=== PATIENT | male | born 1940 | race Caucasian/White ===

== ENCOUNTER 2018-11-13 12:58 | Outpatient (REF) | payer MEDICARE, BC, SELFPAY ==
[2018-11-13 19:50] LABS: HCT 41.7 % (40.0-50.0); HGB 13.2 g/dL (13.5-17.5); Mean Corp. HGB Concentration 31.7 g/dL (32.0-36.0); Mean Corpuscular Hemoglobin 29.3 pg (27.0-33.0); Mean Corpuscular Volume 92.5 fL (80-95); Mean Platelet Volume 11.4 fL (8.0-11.0); Platelet Count 176 x1000/uL (130-400); RBC 4.51 m/cumm (4.50-6.00); RBC Distribution Width 14.7 % (11.8-14.1)
[2018-11-13 20:36] LABS: Anion Gap 10.2 mmol/L (3-11); BUN 19 mg/dL (7-18); CO2 26.8 mmol/L (21.0-32.0); CREATININE 1.23 mg/dL (0.70-1.30); Calcium 9.7 mg/dL (8.5-10.1); Chloride 105 mmol/L (98-107); Estimated GFR 56.76 (mL/min/1.73m2); Glucose 125 mg/dL (70-100); Potassium 4.3 mmol/L (3.5-5.1); Sodium 142 mmol/L (136-145); Vitamin B12 280 pg/mL (193-986)
[2018-11-15 14:14] LABS: Total Protein 6.6 g/dl (6.3-8.2)
== END 2018-11-13 13:18 ==
LOC: NCHCN 12:58
PROVIDERS: PCP Internal Medicine; Visit Provider Internal Medicine
DX: R47.1 Dysarthria and anarthria (principal); E11.40 Type 2 diabetes mellitus with diabetic neuropathy, unspecified
CPT/HCPCS: 80048; 85027; 82607; 84165; 84443

== ENCOUNTER → 2019-01-01 08:21 | Outpatient (BNVA) | payer MEDICARE, BC, SELFPAY | PROVIDERS: PCP Internal Medicine; Referring Provider Internal Medicine; Visit Provider Urology | DX: R33.9 Retention of urine, unspecified (principal) ==

== ENCOUNTER → 2019-01-04 08:58 | Outpatient (BNVA) | payer MEDICARE, BC, SELFPAY | PROVIDERS: PCP Internal Medicine; Referring Provider Internal Medicine; Visit Provider Urology | DX: R35.0 Frequency of micturition (principal); Z87.898 Personal history of other specified conditions | CPT/HCPCS: 51798; 81003; 99212; 99213 ==

== ENCOUNTER → 2019-02-07 11:00 | Outpatient (BNVA) | payer MEDICARE, BC, SELFPAY | PROVIDERS: PCP Internal Medicine; Referring Provider Internal Medicine; Visit Provider Nurse Practitioner Gerontology | DX: N32.81 Overactive bladder (principal); E11.42 Type 2 diabetes mellitus with diabetic polyneuropathy; I10 Essential (primary) hypertension | CPT/HCPCS: 99214 ==

== ENCOUNTER 2019-08-30 09:38 | Outpatient (REF) | payer MEDICARE, BC, SELFPAY ==
[2019-08-30 19:08] LABS: HCT 38.5 % (40.0-50.0); HGB 11.9 g/dL (13.5-17.5); Mean Corp. HGB Concentration 30.9 g/dL (32.0-36.0); Mean Corpuscular Hemoglobin 27.6 pg (27.0-33.0); Mean Corpuscular Volume 89.3 fL (80-95); Mean Platelet Volume 10.8 fL (8.0-11.0); Platelet Count 249 x1000/uL (130-400); RBC 4.31 m/cumm (4.50-6.00); RBC Distribution Width 14.5 % (11.8-14.1); White Blood Cell Count 5.37 k/cumm (4.4-10.8)
[2019-08-30 19:26] LABS: BUN 23 mg/dL (7-18); CREATININE 1.18 mg/dL (0.70-1.30); Calcium 9.2 mg/dL (8.5-10.1); Chloride 105 mmol/L (98-107); Glucose 167 mg/dL (74-106); Potassium 4.1 mmol/L (3.5-5.1); Sodium 141 mmol/L (136-145)
== END 2019-08-30 09:58 ==
LOC: NCHCN 09:38
PROVIDERS: PCP Internal Medicine; Visit Provider Nurse Practitioner Family
DX: Z01.818 Encounter for other preprocedural examination (principal)
CPT/HCPCS: 80048; 85027

== ENCOUNTER → 2019-11-06 08:04 | Outpatient (BNVA) | payer MEDICARE, BC, SELFPAY | PROVIDERS: PCP Internal Medicine; Referring Provider Internal Medicine; Visit Provider Urology | DX: N32.81 Overactive bladder (principal); Z87.898 Personal history of other specified conditions; E11.9 Type 2 diabetes mellitus without complications; I10 Essential (primary) hypertension; Z79.4 Long term (current) use of insulin | CPT/HCPCS: 81003; 99213 ==

== ENCOUNTER → 2019-12-28 09:33 | Outpatient (BNVA) | payer MEDICARE, BC, SELFPAY | PROVIDERS: PCP Internal Medicine; Referring Provider Internal Medicine; Visit Provider Urology | DX: N32.81 Overactive bladder (principal); E11.42 Type 2 diabetes mellitus with diabetic polyneuropathy; I10 Essential (primary) hypertension; Z79.4 Long term (current) use of insulin | CPT/HCPCS: 99213 ==

== ENCOUNTER → 2020-01-28 13:08 | Outpatient (BNVA) | payer MEDICARE, BC, SELFPAY | PROVIDERS: PCP Internal Medicine; Referring Provider Internal Medicine; Visit Provider Urology | DX: N32.81 Overactive bladder (principal); Z87.898 Personal history of other specified conditions; E11.42 Type 2 diabetes mellitus with diabetic polyneuropathy; I10 Essential (primary) hypertension | CPT/HCPCS: 99213 ==

== ENCOUNTER → 2020-02-11 13:59 | Outpatient (BNVA) | payer MEDICARE, BC, SELFPAY | PROVIDERS: PCP Internal Medicine; Referring Provider Internal Medicine; Visit Provider Nurse Practitioner Adult Health | DX: G56.03 Carpal tunnel syndrome, bilateral upper limbs (principal); G56.23 Lesion of ulnar nerve, bilateral upper limbs; E11.42 Type 2 diabetes mellitus with diabetic polyneuropathy; I10 Essential (primary) hypertension | CPT/HCPCS: 95886; 95911; 99203; 99214 ==

== ENCOUNTER → 2020-04-21 15:06 | Outpatient (BNVA) | payer MEDICARE, BC, SELFPAY | PROVIDERS: PCP Internal Medicine; Referring Provider Internal Medicine; Visit Provider Nurse Practitioner Gerontology | DX: N32.81 Overactive bladder (principal); M25.552 Pain in left hip; R33.8 Other retention of urine | CPT/HCPCS: 99213 ==

== ENCOUNTER 2020-07-30 16:44 | Outpatient (REF) | payer MEDICARE, BC, SELFPAY ==
[2020-07-30 20:38] LABS: Anion Gap 10.1 mmol/L (3-11); BUN 32 mg/dL (7-18); CO2 24.9 mmol/L (21.0-32.0); CREATININE 1.4 mg/dL (0.70-1.30); Calcium 9.2 mg/dL (8.5-10.1); Chloride 109 mmol/L (98-107); Estimated GFR 48.64 (mL/min/1.73m2); Glucose 148 mg/dL (74-106); Potassium 4.9 mmol/L (3.5-5.1); Sodium 144 mmol/L (136-145)
[2020-07-30 20:49] LABS: HCT 35.6 % (40.0-50.0); HGB 10.8 g/dL (13.5-17.5); MCH 25.4 pg (27.0-33.0); MCHC 30.3 % (32.0-36.0); MCV 83.8 fL (80-95); MPV 11.6 fL (8.0-11.0); Platelet Count 202 10^3/uL (130-400); RBC 4.25 10^6/uL (4.36-5.78); RDW 16.6 % (11.8-14.1); RDW-SD 50.8 fL; WBC 4.23 10^3/uL (4.4-10.8)
== END 2020-07-30 16:45 | disposition home or self-care (01) ==
LOC: NCHCN 16:44
PROVIDERS: PCP Internal Medicine; Visit Provider Internal Medicine
DX: G45.9 Transient cerebral ischemic attack, unspecified (principal); M48.02 Spinal stenosis, cervical region; I10 Essential (primary) hypertension
CPT/HCPCS: 80048; 85027

== ENCOUNTER → 2020-08-14 09:57 | Outpatient (BNVA) | payer MEDICARE, BC, SELFPAY | PROVIDERS: PCP Internal Medicine; Referring Provider Internal Medicine; Visit Provider Nurse Practitioner Gerontology | DX: N32.81 Overactive bladder (principal); Z87.898 Personal history of other specified conditions | CPT/HCPCS: 81003; 99213 ==

== ENCOUNTER 2020-09-03 15:49 | Outpatient (REF) | payer MEDICARE, BC, SELFPAY ==
[2020-09-03 20:51] LABS: HCT 36.5 % (40.0-50.0); HGB 10.8 g/dL (13.5-17.5); MCH 25.6 pg (27.0-33.0); MCHC 29.6 % (32.0-36.0); MCV 86.5 fL (80-95); MPV 11.5 fL (8.0-11.0); Platelet Count 189 10^3/uL (130-400); RBC 4.22 10^6/uL (4.36-5.78); RDW 16.1 % (11.8-14.1); RDW-SD 51.6 fL; WBC 3.58 10^3/uL (4.4-10.8)
[2020-09-03 21:09] LABS: Anion Gap 10.6 mmol/L (3-11); BUN 26 mg/dL (7-18); CO2 26.4 mmol/L (21.0-32.0); CREATININE 1.2 mg/dL (0.70-1.30); Chloride 107 mmol/L (98-107); Estimated GFR 58.11 (mL/min/1.73m2); Glucose 139 mg/dL (74-106); Potassium 4.6 mmol/L (3.5-5.1); Sodium 144 mmol/L (136-145)
== END 2020-09-03 15:50 | disposition home or self-care (01) ==
LOC: NCHCN 15:49
PROVIDERS: PCP Internal Medicine; Visit Provider Internal Medicine
DX: Z01.818 Encounter for other preprocedural examination (principal); G89.29 Other chronic pain
CPT/HCPCS: 80048; 85027

== ENCOUNTER → 2021-01-13 10:13 | Outpatient (BNVA) | payer MEDICARE, BC, SELFPAY | PROVIDERS: PCP Internal Medicine; Referring Provider Internal Medicine; Visit Provider Urology | DX: R33.8 Other retention of urine (principal); N32.81 Overactive bladder; R39.89 Other symptoms and signs involving the genitourinary system; E11.9 Type 2 diabetes mellitus without complications | CPT/HCPCS: 99213 ==

== ENCOUNTER → 2021-02-05 10:03 | Outpatient (BNVA) | payer MEDICARE, BC, SELFPAY | PROVIDERS: PCP Internal Medicine; Referring Provider Internal Medicine; Visit Provider Nurse Practitioner Gerontology | DX: N32.81 Overactive bladder (principal); R33.8 Other retention of urine; Z87.898 Personal history of other specified conditions; Z79.899 Other long term (current) drug therapy | CPT/HCPCS: 81003; 99214 ==

== ENCOUNTER → 2021-04-20 09:44 | Outpatient (BNVA) | payer MEDICARE, BC, SELFPAY | PROVIDERS: PCP Internal Medicine; Referring Provider Internal Medicine; Visit Provider Nurse Practitioner Gerontology | DX: R33.8 Other retention of urine (principal); N32.81 Overactive bladder; Z87.898 Personal history of other specified conditions | CPT/HCPCS: 99214 ==

== ENCOUNTER 2021-06-26 18:12 | Outpatient (REF) | payer MEDICARE, BC, SELFPAY ==
[2021-06-26 19:17] LABS: HCT 40.6 % (40.0-50.0); HGB 12.4 g/dL (13.5-17.5); MCH 27.9 pg (27.0-33.0); MCHC 30.5 % (32.0-36.0); MCV 91.4 fL (80-95); MPV 10.9 fL (8.0-11.0); Platelet Count 164 10^3/uL (130-400); RBC 4.44 10^6/uL (4.36-5.78); RDW 14.7 % (11.8-14.1); RDW-SD 49.3 fL; WBC 4.37 10^3/uL (4.4-10.8)
[2021-06-26 19:29] LABS: Anion Gap 7.2 mmol/L (3-11); BUN 24 mg/dL (7-18); CO2 29.8 mmol/L (21.0-32.0); CREATININE 1.2 mg/dL (0.70-1.30); Calcium 9.5 mg/dL (8.5-10.1); Chloride 106 mmol/L (98-107); Estimated GFR 57.96 (mL/min/1.73m2); Glucose 101 mg/dL (74-106); Potassium 4.5 mmol/L (3.5-5.1); Sodium 143 mmol/L (136-145)
== END 2021-06-26 18:13 | disposition home or self-care (01) ==
LOC: NCHCN 18:12
PROVIDERS: PCP Internal Medicine; Visit Provider Nurse Practitioner Family
DX: E11.40 Type 2 diabetes mellitus with diabetic neuropathy, unspecified (principal); Z01.818 Encounter for other preprocedural examination
CPT/HCPCS: 80048; 85027

== ENCOUNTER → 2021-07-30 12:27 | Outpatient (BNVA) | payer MEDICARE, BC, SELFPAY | PROVIDERS: PCP Internal Medicine; Referring Provider Internal Medicine; Visit Provider Nurse Practitioner Gerontology | DX: N32.81 Overactive bladder (principal); R33.8 Other retention of urine; Z87.898 Personal history of other specified conditions | CPT/HCPCS: 51798; 99214 ==

== ENCOUNTER 2022-05-21 18:20 | Outpatient (REF) | payer MEDICARE, BC, SELFPAY ==
--- OUTSIDE RECORDS SUMMARY | 2022-05-21 18:36 | XMS_ITS | Continuity of Care Document ---
Author Name Unknown Organization [facility] Ambulatory Clinics Address [address] [place] [address] Care Team Providers Care Audio Visual Design Engineer Name Role Phone Rogelio Louise DO Primary Care Physician Encounter [facility] NBR [id number] Date(s): 03/02/22 - 03/02/22 [facility] Amb[facility] [address] [place] [phone] Encounter Diagnosis Lumbar radiculopathy(Discharge Diagnosis) - 03/02/22 Sacroiliac joint dysfunction(Discharge Diagnosis) - 03/02/22 Osteoarthritis of knee(Discharge Diagnosis) - 03/02/22 Myofascial pain(Discharge Diagnosis) - 03/02/22 Spinal enthesopathy, lumbar region(Discharge Diagnosis) - 03/02/22 Discharge Disposition: Home or Self Care Attending Physician: Bandar Arnold DO Allergies, Adverse Reactions, Alerts Substance Reaction Severity Status ibuprofen Unknown Unknown Active naproxen Unknown Unknown Active oxybutynin Unknown Unknown Active diclofenac Unknown Unknown Active atorvastatin Unknown Unknown Active Capoten Unknown Unknown Active Assessment and Plan Future Appointments Medications allopurinol 300 mg oral tablet See Instructions, 0 Refill(s) Start Date: 12/24/21 Status: Ordered aspirin 81 mg oral capsule See Instructions, 0 Refill(s) Start Date: 12/24/21 Status: Ordered doxazosin 4 mg oral tablet See Instructions, 0 Refill(s) Start Date: 12/24/21 Status: Ordered ferrous sulfate 325 mg (65 mg elemental iron) oral delayed release tablet See Instructions, 0 Refill(s) Start Date: 12/24/21 Status: Ordered finasteride 5 mg oral tablet See Instructions, 0 Refill(s) Start Date: 12/24/21 Status: Ordered Flonase Allergy Relief 50 mcg/inh nasal spray See Instructions, 0 Refill(s) Start Date: 12/24/21 Status: Ordered fluorouracil 5% topical cream BID, 1 Unknown, 0 Refill(s) Start Date: 12/24/21 Status: Ordered gabapentin 100 mg oral capsule See Instructions, 0 Refill(s) Start Date: 12/24/21 Status: Ordered Levemir FlexTouch 100 units/mL subcutaneous solution See Instructions, 0 Refill(s) Start Date: 12/24/21 Status: Ordered losartan 100 mg oral tablet See Instructions, 0 Refill(s) Start Date: 12/24/21 Status: Ordered losartan 25 mg oral tablet 25 mg = 1 tab, Oral, Daily, 1 Unknown, 0 Refill(s) Start Date: 12/24/21 Status: Ordered lysine 1000 mg oral tablet 0 Refill(s) Start Date: 12/24/21 Status: Ordered metFORMIN 500 mg oral tablet See Instructions, 0 Refill(s) Start Date: 12/24/21 Status: Ordered metFORMIN 850 mg oral tablet See Instructions, 0 Refill(s) Start Date: 12/24/21 Status: Ordered mometasone-formoterol 50 mcg-5 mcg/ inh inhalation aerosol 0 Refill(s) Start Date: 12/24/21 Status: Ordered montelukast 10 mg oral tablet 10 mg = 1 tab, Oral, Daily, 1 Unknown, 0 Refill(s) Start Date: 12/24/21 Status: Ordered multivitamin adult, oral tablet See Instructions, 0 Refill(s) Start Date: 12/24/21 Status: Ordered Myrbetriq 50 mg oral tablet, extended release See Instructions, 0 Refill(s) Start Date: 12/24/21 Status: Ordered Nasonex 50 mcg/inh nasal spray See Instructions, 0 Refill(s) Start Date: 12/24/21 Status: Ordered oxyCODONE-acetaminophen 5 mg-325 mg oral tablet See Instructions, QID, 0 Refill(s) Start Date: 12/24/21 Status: Ordered simvastatin 80 mg oral tablet See Instructions, 0 Refill(s) Start Date: 12/24/21 Status: Ordered timolol hemihydrate 0.5% ophthalmic solution See Instructions, 0 Refill(s) Start Date: 12/24/21 Status: Ordered Tylenol 8 HR Arthritis Pain 0 Refill(s) Start Date: 12/24/21 Status: Ordered Tylenol Extra Strength 500 mg oral tablet 0 Refill(s) Start Date: 12/24/21 Status: Ordered ZyrTEC 10 mg oral tablet See Instructions, 0 Refill(s) Start Date: 12/24/21 Status: Ordered Problem List Condition Confirmation Course Effective Dates Status H ealth Status Informant Actinic keratosis Confirmed Active Actinic keratosis Confirmed Active Bilateral sacroiliitis Confirmed Active Bronchiectasis Confirmed Active Chronic obstructive lung disease Confirmed Active Chronic pain Confirmed Active Chronic pansinusitis Confirmed Active Chronic rhinitis Confirmed Active Hypertrophy of nasal turbinates Confirmed Active Interstitial lung disease Confirmed Active Lumbar spondylosis Confirmed Active 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 Sex Physician Outpatient Note * Bandar Arnold DO: PERFORM Event Display: Office Clinic Note Physician Authored Date: [id number] JAJA SORIANO :1940 Age:81 years Sex:Male Visit Date:03/02/2022 Primary Care Physician: Rogelio Louise DO History of Present Illness Patient here for follow-up after caudal epidural and bilateral sacroiliac injection x1. ??Patient to have 80% relief of pain. ??Patient continues complain of lower??right sided back pain??but denies any radiation of pain.?? Today patient also complains of severe left knee pain would like to proceedwith knee injection. ??He denies any adverse reactions to injection. ??Patient also brought an MRI??that was ordered by PCP recently Review of Systems Patient denies any shortness of breath, chest pain, adverse reaction to procedures, new numbness, weakness, bladder dysfunction, bowel dysfunction, falls, gait/balance impairment Physical Exam Orientaton: AOx3, NAD Mood: pleasant ROM: pain with Palpation: tenderness to??palpation, trigger points noted??lumbar paraspinals Respiratory: non labor, non distress Provocative exam: SLR??positive gait: Antalgic??but steady ?? Review MRI lumbar spine ?? Procedure Diagnosis: Knee osteoarthritis Procedure: Left??knee aspiration with steroid injection under ultrasound guidance ?? After risks benefits were described to patient patient agreed by verbal written consent.?? Patient was placed??in supine position??with knee??flexed at 40% with a pillow. ??After sterilizing the kneewith alcohol solution??and visualizing knee joint ultrasound??a 22-gauge needle was gently placed??into the knee joint.?? 10 mL of clear knee fluid was aspirated,??there is no signs of infection.?? Thin steroid solution consisting of 40 mg of Depo-Medrol??was injected??into the knee joint. ??This was visualized ultrasound-guided imaging??to ensure proper knee replacement??and to minimize injury.?? Needle was withdrawal. ??There is no sign of intravascular injection and patient remained stable throughout. ??Patient was discharged home with instructions to call if any problems arise and follow-up in office within 2 weeks ? Diagnosis:??Myofascial pain, lumbar spinal??enthesopathy Procedure:??Right??lumbar trigger point injections ?? After risk and benefits were explained to the patient in detailed, the patient agreed to proceedwith trigger point injections. After?? identifying trigger points by palpation and sterilizing the skin with an alcohol solution, a 22 gauge needle was placed into each trigger points. After negativeaspriation a lidocaine solution was injected into each trigger point. Then each trigger point was peppered. The needle was withdrawn and there were no complications. A total of 5 TPI were performed to the lumbar paraspinals Assessment/Plan Lumbar radiculopathy??M54.16 Patient received 80% relief from caudal epidural bilateral sacroiliac joint injection x1. ??Patientresidual pain??appears secondary to unresolved lumbar radiculopathy myofascial pain. ??There may becomponent lumbar spondylosis at the sacral region Patient's knee pain secondary to DJD Perform trigger point injections today especially around his lumbar scar regions Performed left knee aspiration and steroid injections ultrasound-guided imaging Patient would be a good candidate for hyaluronic acid derivatives in the future Schedule patient for right L5 and S1 transforaminal epidural Patient may benefit from sacral medial branch blocks versus repeat??sacroiliac joint injection if clinically Due to the fact that patient has 80% relief with caudal epidural??failed??conservative treatment such as medications and physical therapy, has imaging suggesting a disc injury, positive signs on provocative exam such as straight leg test, numbness and/or weakness. It is my??clinical judgement that patient would benefit from??right L5 and S1??transforaminal epidural??steroid??injections under fluoroscopy.? will send to physical therapy if pain relief improves to 90% for gait/balance improvement and injury prevention ?? Follow-up 2 weeks after injection. ??Explained to patient that??he may be following up with new provider he is agreement with it. 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 Nasal discharge Osteoarthritis of left knee joint Polyp of nasal cavity and/or nasal sinus Posterior rhinorrhea Purulent nasal discharge Recurrent acute sinusitis Solitary sacroiliitis Squamous cell carcinoma Thoracic spondylosis with myelopathy Type 2 diabetes mellitus without complication Historical No qualifying data Medications allopurinol 300 mg oral tablet, See Instructions aspirin 81 mg oral capsule, See Instructions doxazosin 4 mg oral tablet, See Instructions ferrous sulfate 325 mg (65 mg elemental iron) oral delayed release tablet, See Instructions finasteride 5 mg oral tablet, See Instructions Flonase Allergy Relief 50 mcg/inh nasal spray, See Instructions fluorouracil 5% topical cream, BID gabapentin 100 mg oral capsule, See Instructions Levemir FlexTouch 100 units/mL subcutaneous solution, See Instructions losartan 100 mg oral tablet, See Instructions losartan 25 mg oral tablet, 25 mg= 1 tab, Oral, Daily lysine 1000 mg oral tablet metFORMIN 500 mg oral tablet, See Instructions metFORMIN 850 mg oral tablet, See Instructions mometasone-formoterol 50 mcg-5 mcg/ inh inhalation aerosol montelukast 10 mg oral tablet, 10 mg= 1 tab, Oral, Daily multivitamin adult, oral tablet, See Instructions Myrbetriq 50 mg oral tablet, extended release, See Instructions Nasonex 50 mcg/inh nasal spray, See Instructions oxyCODONE-acetaminophen 5 mg-325 mg oral tablet, See Instructions simvastatin 80 mg oral tablet, See Instructions timolol hemihydrate 0.5% ophthalmic solution, See Instructions Tylenol 8 HR Arthritis Pain Tylenol Extra Strength 500 mg oral tablet ZyrTEC 10 mg oral tablet, See Instructions Allergies Capoten??(Unknown) atorvastatin??(Unknown) diclofenac??(Unknown) ibuprofen??(Unknown) naproxen??(Unknown) oxybutynin??(Unknown) Social History Electronic Cigarette/Vaping Electronic Cigarette Use: Unknown/not obtained. Tobacco Tobacco use status unknown Tobacco Use:. Electronically Signed on 03/02/22 11:12 AM Bandar Arnold DO Patient Care team information Personnel Name: Rogelio Louise DO Address: Address: [address] [place] [id number] [place]
--- OUTSIDE RECORDS SUMMARY | 2022-05-21 18:36 | XMS_ITS | Continuity of Care Document ---
Author Name Unknown Organization [facility] Address [address] [place] [address] Care Team Providers Care Adjudication Specialist Name Role Phone Primeau Rosas MATIAS Primary Care Physician Encounter [facility] Date(s): 03/29/22 - 03/29/22 [facility] [address] [place] [address] Encounter Diagnosis Cervical myelopathy(Discharge Diagnosis) - 03/29/22 Arthritis of both shoulder regions(Discharge Diagnosis) - 03/29/22 Discharge Disposition: Home or Self Care Attending Physician: Osbaldo Rodriguez MD Admitting Physician: Osbaldo Rodriguez MD Referring Physician: Osbaldo Rodriguez MD Allergies, Adverse Reactions, Alerts No Known Medication Allergies Substance Reaction Severity Status diclofenac Unknown Active atorvastatin Unknown Active Assessment and Plan Future Appointments Medications acetaminophen 325 mg oral tablet 650 mg = 2 tab, Oral, every 6 hr, PRN pain, 0 Refill(s) Start Date: 10/13/21 Status: Ordered allopurinol 300 mg oral tablet 300 mg = 1 tab, Oral, Daily, # 30 tab, 0 Refill(s) Start Date: 10/12/21 Status: Ordered aspirin 81 mg oral tablet, chewable 81 mg = 1 tab, Oral, Daily, 0 Refill(s) Start Date: 10/13/21 Status: Ordered celecoxib 200 mg oral capsule 200 mg = 1 cap, Oral, Daily, # 90 cap, 0 Refill(s) Start Date: 10/12/21 Status: Ordered doxazosin 2 mg oral tablet 2 mg = 1 tab, Oral, Daily, # 90 tab, 0 Refill(s) Start Date: 10/12/21 Status: Ordered finasteride 5 mg oral tablet 5 mg = 1 tab, Oral, Daily, # 90 tab, 0 Refill(s) Start Date: 10/12/21 Status: Ordered Flonase 50 mcg/inh nasal spray 2 sprays, Nasal, every morning, PRN allergy symptoms, 0 Refill(s) Start Date: 10/12/21 Status: Ordered gabapentin 100 mg oral capsule 200 mg = 2 cap, Oral, Daily, 0 Refill(s) Start Date: 10/13/21 Status: Ordered insulin detemir 100 units/mL subcutaneous solution 40 units =, Subcutaneous, Daily, pt has, # 10 mL, 0 Refill(s) Start Date: 10/13/21 Status: Ordered losartan 50 mg oral tablet 50 mg = 1 tab, Oral, Daily, # 90 tab, 0 Refill(s) Start Date: 10/12/21 Status: Ordered magnesium oxide 400 mg (241.3 mg elemental magnesium) oral tablet 400 mg = 1 tab, Oral, Daily, 0 Refill(s) Start Date: 10/13/21 Status: Ordered metFORMIN 850 mg oral tablet 850 mg = 1 tab, Oral, BID, # 180 tab, 0 Refill(s) Start Date: 10/12/21 Status: Ordered montelukast 10 mg oral tablet 10 mg = 1 tab, Oral, Daily, 0 Refill(s) Start Date: 10/12/21 Status: Ordered Myrbetriq 50 mg oral tablet, extended release 50 mg = 1 tab, Oral, Daily, do not crush or chew, # 30 tab, 0 Refill(s) Start Date: 10/12/21 Status: Ordered oxyCODONE 5 mg oral tablet 0 Refill(s) Start Date: 10/13/21 Status: Ordered timolol maleate 0.5% ophthalmic solution 1 drops, Eye-Both, Daily, 0 Refill(s) Start Date: 10/12/21 Status: Ordered Problem List Condition Confirmation Course Effective Dates Status Health St [facility] Informant Arthritis of both shoulder regions Confirmed Active Cervical myelopathy Confirmed Active Diabetic peripheral neuropathy Confirmed Active Hypertension Confirmed Active Primary osteoarthritis, left shoulder Confirmed Active Type 2 diabetes mellitus Confirmed Active Social History Social History Type Response Tobacco Former tobacco user Tobacco Use:. quit 1972 per day. Sex Male Patient Care team information Personnel Name: Ben Rosas MATIAS MD Address: Address: [address]
--- OUTSIDE RECORDS SUMMARY | 2022-05-21 18:36 | XMS_ITS ---
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 Name Role Phone Noe Mckeon Unavailable [phone] PROBLEMS Type Condition ICD9-CM Code ICC91-JR Code Onset Dates Condition Status SNOMED Code Problem Encounter for postoperative wound check V58.49 Active 028494642 Problem Postop check V67.00 Active 636247524 Problem Spondylolisthesis of lumbar region M43.16 Active 466194884 Problem Lumbar spondylosis M47.816 Active 82072 0009 Problem Acquired spondylolisthesis 738.4 Active 595709006 ALLERGIES No Known Allergies ENCOUNTERS Encounter Location Date Diagnosis [facility] [address] [place] [address] [place] [address] May, [facility] [address] [place] [address] [place] [phone] 14 Apr, 2022 Postop check V67.00 ; Encounter for postoperative wound check V58.49 ; Lumbar spondylosis M47.816 and Spondylolisthesis of lumbar region M43.16 [facility] [address] [place] [address] [place] [address] Mar, [facility] [address] [place] [address] [place] [phone] Mar, Lumbar spondylosis M47.816 [facility] [address] [place] [address] [place], [place] Mar, Postop check V67.00 ; Lumbar spondylosis M47.816 and Spondylolisthesis of lumbar region M43.16 [facility] [address] [place] [address] [place], [place] Nov, [facility] [address] [place] [address] [place], [place] Nov, [facility] [address] [place] [address] [place], [place] July, Postop check V67.00 ; Lumbar spondylosis M47.816 and Spondylolisthesis of lumbar region M43.16 [facility] [address] [place] [address] [place], [place] July, [facility] [address] [place] [address] [place] [address] May, [facility] [address] [place] [address] [place] [address] May, Postop check V67.00 ; Lumbar spondylosis M47.816 and Spondylolisthesis of lumbar region M43.16 [facility] [address] [place] [address] [place], [place] 08 Nov, 2015 Postop check V67.00 ; Lumbar spondylosis M47.816 ; Encounter for postoperative wound check V58.49 and Spondylolisthesis of lumbar region M43.16 [facility] [address] [place] [address] [place], [place] Oct, [facility] [address] [place] [address] [place] Oct, [facility] [address] [place] [address] [place], [place] Oct, [facility] [address] [place] [address] [place] Oct, [facility] [address] [place] [address] [place] Oct, Lumbar spondylosis M47.816 ; Encounter for postoperative wound check V58.49 and Spondylolisthesis of lumbar region M43.16 [facility] [address] [place] [address] [place] [address] 15 Aug, 2015 Postop check V67.00 ; Lumbar spondylosis M47.816 ; Encounter for postoperative wound check V58.49 ; Spondylolisthesis of lumbar region M43.16 and Acquired spondylolisthesis 738.4 [facility] [address] [place] [address] [place] [address] July, [facility] [address] [place] [address] [place] July, [facility] [address] [place] [address] [place], [place] July, [facility] [address] [place] [address] [place] Jun, [facility] [address] [place] [address] [place] Jun, [facility] [address] [place] [address] [place] Jun, [facility] [address] [place] [address] [place] Jun, [facility] [address] [place] [address] [place] [address] Jun, [facility] [address] [place] [address] [place], [place] Jun, [facility] [address] [place] [address] [place] [address] May, [facility] [address] [place] [address] [place] Apr, [facility] [address] [place] [address] [place], [place] Apr, [facility] [address] [place] [address] [place] Feb, [facility] [address] [place] [address] [place] Jan, Lumbar spondylosis M47.816 ; Spondylolisthesis of lumbar region M43.16 and Acquired spondylolisthesis 738.4 [facility] [address] [place] [address] [place] [address] Aug, [facility] [address] [place] [address] [place] [address] July, [facility] [address] [facility] [address] [place] [address] [place] [address] July, Lumbosacral spondylosis without myelopathy 721.3 and Acquired spondylolisthesis 738.4 IMMUNIZATIONS No Known Immunizations SOCIAL HISTORY Never Assessed REASON FOR REFERRAL FUNCTIONAL STATUS PLAN OF CARE Activity Details VITAL SIGNS Height 5 ft 9 in in 2022-03-17 Weight 170 lbs 2022-03-17 BMI 25.10 kg/m2 2022-03-17 MEDICATIONS Medication Instructions Dosage Frequency Start Date End Date Du ration Status Aspirin Active Insulin Aspart A ctive Klor-Con Active Doxazosin Mesylate Active Glimepiride Acti ve Allopurinol Acti ve aMILoride-hydroCHLO ROthiazide Active Metformin Active Simvastatin Acti ve Timolol Hemihydrate Active Diovan Active PROCEDURES No Known procedures RESULTS Name Result Date Reference Range COMPLETE BLOOD COUNT W PLT - CBC Hematocrit 35.6 42.0-51.0 Hemoglobin 11.3 14.0-17.0 MCH 30.0 27.0-34.0 MCHC 31.7 31.0-36.0 MCV 94.4 80.0-98.0 Platelet 153 150-400 RDW-CV 13.7 11.5-14.5 Red Blood Count 3.77 4.20-5.80 White Blood Coun 6.57 4.0-11.0 BASIC METABOLIC PANEL - BMP 2022-04-07 Bicarbonate 28 21-30 BUN 26 6-20 Calcium 8.6 8.4-10.2 Chloride 104 100-112 Creatinine 1.1 0.0-1.3 Glucose 211 70-105 Potassium 4.7 3.5-5.3 Sodium 140 135-145 MAGNESIUM - MG 2022-04-07 Magnesium 1.2 1.6-2.6 CT LUMBAR SPINE WITHOUT CONTR 2016-06-24 LUMBAR SPINE 2-3 VIEWS 2016-05-05 FLUORO C ARM OR 2015-10-28 MRI SPINE-LUMBAR 2015-10-07 CHEST PA and LATERAL 2015-07-14 LUMBAR SPINE 2-3 VIEWS 2015-07-13 FLUORO C ARM 3D OR 2015-07-10 REASON FOR VISIT Call Back , 2 week post op s/p [id number] PSF w/ L1-L2 SPO (04/06/2022), Diagnostics, s/p Exploration of lumbar fusion for right L5-S1 synovial cyst resection and laminoforaminotomy (10/28/2015), Low back pain and right leg 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, 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, 9 month follow up s/p Exploration of prior instrumentated lumbar fusion for right L5-S1 synovial cyst resection and laminoforaminotomy (10/28/2015), Diagnostic Results, CT results/ cancelled appt , Pt needs surgery, 10 month post op s/p Exploration of prior instrumented lumbar fusion for right L5-S1 synovial cyst resection and laminoforaminotomy (10/28/2015)., 2week post op s/p Exploration of prior instrumented lumbar fusion for right L5-S1 synovial cyst resection and laminoforaminotomy (10/28/2015)., surgery, surgery, Pt will be needing surgery, 3 month post op s/p Rev lami L1-L5; L1-L5 PSF; pedicle fixation L1-L5 (07/10/2015), 5.5 week post op s/p Rev lamiL1-L5; L1-L5 PSF; pedicle fixation L1-L5 (07/10/2015), Needs call back from office, back brace, needs clearance , Surgical pt 07/10/2015, surgery, ready to book surgery, Cancel surgery, Questions, Low back pain and bilateral leg pain (R>L), FYI only, Low back pain and bilateral leg pain (R>L) Insurance Providers Health Insurance Type Health Plan Insurance Address Health Plan Insurance Phone Health Plan Insurance Name Health Plan Coverage Dates Member ID Patient Relationship to Subscriber Patient Address Patient Phone Patient Name Patient Date of Subscriber ID Subscriber Name Subscriber Date of Group No MEDICARE [address] [facility] [address] MEDICARE self [place] grant [id number] [facility] Medex self [place] grant [id number]
--- OUTSIDE RECORDS SUMMARY | 2022-05-21 18:36 | XMS_ITS | Continuity of Care Document ---
Author Name Unknown Organization [facility] Address [address] [place] [address] Care Team Providers Care Sign Manufacturer Name Role Phone Rosas Fowler Primary Care Physician Encounter [facility] Date(s): 02/18/22 - 02/18/22 [facility] [address] [place] [address] Discharge Disposition: Home or Self Care Attending Physician: Rosas Fowler MD Admitting Physician: Rosas Fowler MD Referring Physician: Rosas Fowler MD Allergies, Adverse Reactions, Alerts No Known [...] peripheral neuropathy Confirmed Active Hypertension Confirmed Active Type 2 diabetes mellitus Confirmed Active Social History Social History Type Response Tobacco Former tobacco user Tobacco Use:. quit 1972 per day. Sex Male Patient Care team information Personnel Name: Ben Rosas MATIAS MD Address: Address: [address] [address] [place]
--- OUTSIDE RECORDS SUMMARY | 2022-05-21 18:36 | XMS_ITS ---
Author Name Rogelio Louise Address [address] [place], [place] [id number] Organization [facility] Address [address], [place] [id number] Care Team Providers Care Behavioral Interventionist Name Role Phone Rogelio Louise Unavailable [phone] PROBLEMS Type Condition ICD9-CM Code [id number] Code Onset Dates Condition Status SNOMED Code Problem Chronic obstructive pulmonary disease, unspecified J44.9 Active 53212734 Problem Bronchiectasis without complication J47.9 Active 68683795 Problem Postnasal drip R09.82 Active 61602539 Problem Acute recurrent maxillary sinusitis J01.01 Active 90362832 Problem Hypertrophy of nasal turbinates J34.3 Active 27771601 Problem Chronic rhinitis J31.0 Active 6570978 6 Problem Type 2 diabetes mellitus without complication, unspecified whether fci insulin use E11.9 Active 296732308 Problem Nasal polyps J33.9 Active 99331028 Problem Acute recurrent pansinusitis J01.41 Active 140179716 Problem Nasal crusting J34.89 Active Problem Purulent rhinorrhea J34.89 Active Problem Primary osteoarthritis of left knee M17.12 Active 779948253 Problem Nasal drainage J34.89 Active Problem Actinic keratosis L57.0 Active 440247 Problem Squamous cell carcinoma C80.1 Active 214175949 Problem Chronic pansinusitis J32.4 Active 96634197 Problem Thoracic spondylosis with myelopathy M47.14 Active 25021940 Problem Interstitial lung disease J84.9 Active 660605617 Problem Lumbar spondylosis M47.816 Active 84574 0009 Problem Other chronic pain G89.29 Active 53953 001 Problem 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 Active 359217579 Problem Bilateral sacroiliitis M46.1 Active [id number] 02 ALLERGIES Substance Reaction Event Type Date Status Capoten Unknown Drug Allergy Nov, Active Ibuprofen Unknown Drug Allergy Nov, Active Oxybutynin Unknown Drug Allergy Nov, Active Voltaren Unknown Drug Allergy Nov, Active Naprosyn Unknown Drug Allergy Nov, Active Lipitor Unknown Drug Allergy Nov, Active ENCOUNTERS Encounter Location Date Diagnosis [facility] [address] [id number] Nov, [facility] [address] [place] [id number] Nov, Squamous cell carcinoma C80.1 [facility] 600 [facility] [address] [place] [id number] Nov, Squamous cell carcinoma C80.1 and Actinic keratosis L57.0 [facility] [place] [address] [id number] Oct, Bilateral sacroiliitis M46.1 [facility] [address] [place], [place] [id number] Sep, Bilateral sacroiliitis M46.1 [facility] [address] [place] [address] [place] [id number] Sep, [facility] [address] [id number] Sep, Neoplasm of unspecified behavior of bone, soft tissue, and skin D49.2 [facility] [address] [place], [place] [id number] Sep, [facility] 600 [facility] [address] [place] [id number] Sep, [facility] 600 [facility] [address] [place] [id number] Sep, Bilateral sacroiliitis M46.1 [facility], [address] [place], [place] [id number] Aug, [facility] 600 [facility] [address] [place] [id number] Aug, [facility] 600 [facility] [address] [place] [id number] Aug, Lumbar spondylosis M47.816 [facility] 600 [facility] [address] [place] [id number] July, [facility] 600 [facility] [address] [place] [id number] July, S/P laminectomy Z98.890 and Thoracic spinal stenosis M48.04 [facility] 600 [facility] [address] [place] [id number] July, S/P laminectomy Z98.890 and Thoracic spinal stenosis M48.04 [facility] 600 [facility] [address] [place] [id number] July, Thoracic spinal stenosis M48.04 and S/P laminectomy Z98.890 [facility] 600 [facility] [address] [place] [id number] July, Pain in left knee M25.562 and Primary osteoarthritis of left knee M17.12 [facility] [address] [place], [place] [id number] July, [facility] 600 [facility] [address] [place] [id number] Jun, [facility] [address] [place] [address] Jun, [facility] 600 [facility] [address] [place] [id number] Jun, [facility] 600 [facility] [address] [place] [id number] Jun, Pain in left knee M25.562 ; Other chronic pain G89.29 and Primary osteoarthritis of left knee M17.12 [facility] 600 [facility] [address] [place] [id number] Jun, Bilateral sacroiliitis M46.1 [facility] 600 [facility] [address] [place] [id number] Jun, Spinal stenosis, thoracic region M48.04 and 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 [facility] 600 [facility] [address] [place], [place] [id number] May, [facility] 600 [facility] [address] [place] [id number] May, 2021 Thoracic spinal stenosis M48.04 [facility] 600 [facility] [address] [place], [place] [id number] May, Sacrococcygeal disorders, not elsewhere classified M53.3 ; Other chronic pain G89.29 and Thoracic spinal stenosis M48.04 [facility] [address] [place] [id number] Apr, Greater trochanteric bursitis of right hip M70.61 [facility] 600 [facility] [address] [place], [place] [id number] Apr, [facility] 600 [facility] [address] [place], [place] [id number] Apr, Greater trochanteric bursitis of right hip M70.61 and Lumbar spondylosis M47.816 [facility] [address] [place], [place] [id number] Jan, Nasal crusting J34.89 ; Nasal polyps J33.9 ; Chronic rhinitis J31.0 and Chronic pansinusitis J32.4 [facility] [address], [address] [place], [place] [id number] Jan, [facility] [address], [address] [place] [id number] Jan, [facility] [address], [address] [place] [id number] Jan, [facility] 600 [facility] [address] [place], [place] [id number] Jan, [facility] [address], [address] [place] [id number] Jan, Nasal drainage J34.89 ; Nasal crusting J34.89 ; Acute recurrent pansinusitis J01.41 and Purulent rhinorrhea J34.89 [facility] 600 [facility] [address] [place], [place] [id number] Jan, [facility] [address], [address] [place], [place] [id number] Nov, [facility] [address], [address] [place] [id number] Nov, [facility] [address], [address] [place], [place] [id number] Oct, Chronic pansinusitis J32.4 ; Nasal polyps J33.9 ; Nasal crusting J34.89 and Type 2 diabetes mellitus without complication, unspecified whether fci insulin use E11.9 [facility] [address], [address] [place], [place] [id number] Sep, [address] [address] Sep, [facility] [address], [address] [place], [place] [id number] Sep, Chronic pansinusitis J32.4 ; Nasal polyps J33.9 and Nasal drainage J34.89 [facility] 600 [facility] [address] [place], [place] [id number] Sep, [facility] [address] [place], [place] [id number] Sep, Acute recurrent pansinusitis J01.41 ; Chronic pansinusitis J32.4 ; Type 2 diabetes mellitus without complication, 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 ; Interstitial lung disease J84.9 and Chronic obstructive pulmonary disease, unspecified J44.9 [facility] [address] [place] [id number] Sep, Encounter for screening for other viral diseases Z11.[address] [address] Aug, [facility] 600 [facility] [address] [place] [id number] Aug, Nasal polyps J33.9 and Chronic pansinusitis J32.4 [facility] 600 [facility] [address] [place] [id number] Aug, Nasal drainage J34.89 ; Acute recurrent maxillary sinusitis J01.01 ; Hypertrophy of nasal turbinates J34.3 ; Nasal polyps J33.9 ; Chronic pansinusitis J32.4 ; Chronic obstructive pulmonary disease, unspecified J44.9 and Type 2 diabetes mellitus without complication, 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 [facility] [address] [place] [address] [place] [id number] July, Acute recurrent maxillary sinusitis J01.01 ; Nasal polyps J33.9 ; Hypertrophy of nasal turbinates J34.3 ; Chronic rhinitis J31.0 and Postnasal drip R09.82 [facility] [address] [place] [id number] Jun, Bronchiectasis without complication J47.9 ; Interstitial lung disease J84.9 and Chest pain, unspecified type R07.9 [facility] [address] [place] [id number] Mar, Chronic obstructive pulmonary disease, unspecified J44.9 [facility] [address] [place] [id number] Mar, Chronic obstructive pulmonary disease, unspecified J44.9 IMMUNIZATIONS No Known Immunizations SOCIAL HISTORY Qualifiers Date Former Smoker REASON FOR REFERRAL FUNCTIONAL STATUS PLAN OF CARE Activity Details VITAL SIGNS Height 5 ft 8 in in 2021-09-14 Height 5 ft 8 in in 2021-08-12 Height 5 ft 8 in in 2021-07-15 Height 5 ft 8 in in 2021-06-24 Height 5 ft 8 in in 2021-06-10 Height 5 ft 8 in in 2021-06-10 Height 5 ft 8 in in 2021-04-07 Height 5 ft 8 in in 2020-01-28 Height 68 in 2020-01-07 Height 68 in 2019-10-08 Height 68 in 2019-09-24 Height 68 in 2019-08-28 Height 68 in 2019-07-27 Height 68 in 2018-06-06 Weight 170 lbs 2021-09-14 Weight 178 lbs 2021-07-15 Weight 179.6 lbs 2021-06-10 Weight 178.4 lbs 2021-04-07 Weight 175 lbs 2020-01-28 Weight 175 lbs 2020-01-07 Weight 175 lbs 2019-10-08 Weight 175 lbs 2019-09-24 Weight 175 lbs 2019-08-28 Weight 195 lbs 2019-07-27 Weight 201 lbs 2018-06-06 Temperature 97.7 degrees Fahrenheit Temperature 97.6 degrees Fahrenheit Temperature 98.7 degrees Fahrenheit Heart Rate 75 /min 2021-08-12 Heart Rate 72 /min 2021-07-15 Heart Rate 66 /min 2021-06-24 Heart Rate 69 /min 2021-06-10 Heart Rate 75 /min 2021-04-07 Heart Rate 70 /min 2019-08-28 Heart Rate 80 /min 2018-06-06 Oximetry 99 2021-08-12 Oximetry 98 2021-07-15 Oximetry 97 2021-06-24 Oximetry 95 2021-06-10 Oximetry 95 2021-04-07 Oximetry 95 2018-06-06 Respiratory Rate 20 /min 2021-06-24 Respiratory Rate 16 /min 2021-04-07 BMI 25.85 kg/m2 2021-09-14 BMI 27.06 kg/m2 2021-07-15 BMI 27.31 kg/m2 2021-06-10 BMI 27.12 kg/m2 2021-04-07 BMI 26.61 kg/m2 2020-01-28 BMI 26.61 kg/m2 2020-01-07 BMI 26.61 kg/m2 2019-10-08 BMI 26.61 kg/m2 2019-09-24 BMI 26.61 kg/m2 2019-08-28 BMI 29.65 kg/m2 2019-07-27 BMI 30.56 kg/m2 2018-06-06 Blood pressure systolic 138 mm Hg Blood pressure diastolic 74 mm Hg 2021-09 MEDICATIONS Medication Instructions Dosage Frequency Start Date End Date Duration Status oxyCODONE-Aceta minophen 5-325 MG Orally every 6 hrs 1 tablet as needed 6h Active Gabapentin 100 MG Orally Once a day 1 capsule 24h 30 day(s) Active Myrbetriq 50 MG Orally Once a day 1 tablet 24h 30 day(s) Active BD ultra fine needles II Active Multivitamin - Orally Once a day 1 tablet 24h 30 day(s) Active Fluorouracil 5 % Externally Twice a day 1 application 12h 14 Nov, 2021 21 days Active Ferrous Sulfate 325 (65 Fe) MG Orally Once a day 1 tablet 24h 30 day(s) Active Levemir FlexTouch 100 UNIT/ML as directed Active Tylenol Arthritis Pain Activ e Lysine 1000 MG as directed Active Allopurinol 300 MG Orally Once a day 1 tablet 24h 30 day(s) Active Doxazosin Mesylate 4 MG Orally Once a day 1 tablet 24h 30 day(s) Active Zyrtec 10mg 1 24h Acti ve Losartan Potassium 100 MG Orally Once a day 1 tablet 24h 30 day(s) Active Finasteride 5 MG Orally Once a day 1 tablet 24h 30 day(s) Active Aspirin 81 81 MG Orally Once a day 1 tablet 24h 30 day(s) Active CeleBREX 200 MG Orally Once a day 1 capsule with food 24h 30 day(s) Active Simvastatin 80 MG Orally Once a day 1 tablet in the evening 24h 30 day(s) Active Timolol Maleate 0.5 % Ophthalmic Once a day 1 drop into affected eye 24h Active Montelukast Sodium 10 MG Orally Once a day 1 tablet 24h 30 day(s) Active Flonase Allergy Relief 50 MCG/ACT Nasally Once a day 1 spray in each nostril 24h 30 day(s) Active tylenol extra strength 500 mg 1 tab 14 days Acti ve Astelin 137 MCG/SPRAY Nasally Twice a day after sinus rinse 2 puffs in each nostril Oct, 30 day(s) Active Mometasone Furoate 50 MCG/ACT USE 2 SPRAY(S) IN EACH NOSTRIL ONCE DAILY Active metFORMIN HCl 850 MG Orally Once a day 1 tablet with a meal 24h 30 day(s) Active Nasonex 50 MCG/ACT Nasally Once a day 2 sprays in each nostril 24h Jan, 30 day(s) Active PROCEDURES Procedure Date Ordered Result Body Site NASAL/SINUS ENDOSCOPY, SURG September 20, 2019 ARTHROCENTESIS MAJOR J Apr 23, 2021 REMOVAL OF ETHMOID SINUS September 20, 2019 OR - INJECT SACROILIAC JOINT June 10, 2021 SHAVE FACE .6 - 1.0 CM September 14, 2021 26 SPIROMETERY CHALLENGE June 07, 2018 NASAL ENDOSCOPY, DX July 27, 2019 SINUS ENDOSCOPY, SURGICAL September 20, 2019 NASAL/SINUS ENDOSCOPY, SURG September 24, 2019 SCAN PROC CRANIAL EXTRA September 20, 2019 SHAVE FACE .6 - 1.0 CM September 14, 2021 EXPLORATION MAXILLARY SINUS September 20, 2019 FLUORO GUIDE FOR NEEDLE Apr 23, 2021 REMOVAL OF ETHMOID SINUS September 20, 2019 ARTHROCENTESIS MAJOR J July 08, 2021 SHAVE S/N/H/F/G .6 - 1.0CM September 14, 2021 OR - INJECT SACROILIAC JOINT September 24, 2021 26 C02/MEMBANE DIFFUSE CAPACITY June 07, 2018 26 PULM FUNCT TST PLETHYSMOGRAP June 07, 2018 NASAL/SINUS ENDOSCOPY, SURG September 20, 2019 SINUS ENDOSCOPY, SURGICAL September 20, 2019 NASAL/SINUS ENDOSCOPY, SURG Oct 08, 2019 EXPLORATION MAXILLARY SINUS September 20, 2019 RESULTS Name Result Date Reference Range GLUCOSE-ACCUCKEK 2021-09-24 SURGICAL PATH 2021-09-14 GLUCOSE-ACCUCKEK 2021-07-08 GLUCOSE-ACCUCKEK 2021-07-07 GLUCOSE-ACCUCKEK 2021-07-07 GLUCOSE-ACCUCKEK 2021-07-06 COVID 19 [facility] PCR ([employer]) AUTHORIZED ONLY 2021-07-06 SARS-CoV-2, PCR NOT DETECTED NOT DETECTED COV 4PLX COMMENT This test has been a uthorized by FDA under an EUA for use by authorized laboratories. False negative results may occur if virus is present at levels below the analytical limit of detection. XR LUMBAR SPINE 1 VIEW 2021-07-06 GLUCOSE-ACCUCKEK 2021-06-10 MR SPINE THORACIC WO CONT 2021-06-10 GLUCOSE-ACCUCKEK 2021-04-23 CULTURE BODY FLUID w/GS 2019-09-20 CULTURE BODY FLUID w/GS 2019-09-20 GLUCOSE-ACCUCKEK 2019-09-20 COVID 19 [place]CREENING-[place] [facility] 2019-09-16 SARS-CoV-2 2019-Novel Coronavir us racebook writer-PCR DATE SENT 09/16/20192018-nCoVRNA NOT DETECTED NOT DETECTED [facility] PERFORMED BY [place] [facility]. SEPARATE REPORT ON FILE. XR CHEST 2 VIEW 2018-06-06 REASON FOR VISIT ENT- fall skin check, ENT- skin lesions on the neck, ENT- Skin lesions on neck, eval for definitivetreatment s/p biopsy, ENT- Skin lesions on neck, eval for definitive treatment s/p biopsy, Fluorouracil RF, scheduled, ENT- pathology results and tx, PLEASE CALL [phone], TeleHealth Est Visit, Pt has agree to telehealth vist to todays complaints, ENT- pathology results, [facility] EST PATIENT (S), [facility]-bilateral SI joint injection, [facility] bilateral SIJ injection, [facility]- BILAT SIJ INJ, [facility]- BILAT SIJ INJ, needs OV, ENT- Bump on Ear, [facility] Skin Est, no auth req'd // Procedure-SIJ/BOOKED for Nov 05, [facility] - DISCUSS INJ POSSIBLE SIJ OR TPI PER ИВАН, Thoracic Lami, Sooner Appointment, appointment, [facility]- POV [facility]2, DR SHELTON PREOP, [facility]- Pre op H and P, Referral to PT , [facility]- P[facility]1, [facility]- POST OP CHECK IN, Post op Rx, [facility]- Left Knee Injection, [facility] Knee Injection, [facility]- Thoracic Lami, preop phone call , 06/30 pcp, no auth req'd // Procedure/surgery with иван - update 06/25, [facility]- F/U SI Joint inj bilateral, [facility]- Bilateral SIJ, [facility]- MRI Follow Up, [facility] - RT GT BURSA F/UP AND ASSESS BACK PAIN, no auth req'd //BOOKED , MRI Schedule , [facility] fu, [facility] - f/u, [facility]- Right GT Bursa, Procedure , CERVICAL RADICULITIS, SPINAL STENOSIS LUMBAR, ENT 3wk f/u for nasal congestion, [facility] EST PATIENT (S), Letter from P[facility], Checking in, Letter request , dupixent, ENT Nasal congestion, PFP Est Patient (L), dupixent, ENT Nasal congestion, [facility] Est Patient (L), ENT Nasal congestion, 11/06/19 Phone Conversation, Enrollment Form, ENT debridement & dupixent discussion, [facility] EST PATIENT (S), Medication Clarification, ENT post op FESS, P[facility] POST OP FESS, nose bleeding after surgery, ENT FESS nasal spetal reconstruction balloon possible , bilateral submucosal resection inferior turbiantes image guidance propel implant., pre op phone call, ENT FESS nasal spetal reconstruction balloon possible , bilateral submucosal resection inferior turbiantes image guidance propel implant.r/s to 09/19, surgical clearance, ent 1 mo fu polyp, PFP Est Patient (L), ENT-nasal polyposis, PFP Nasal Obstruction, [facility]-Nasal Endoscopy. [place] Dragon Disclaimer, PFP, New Patient, PFP allergy discussion. , [facility]- COPD, arrive at 9:00 am for x-ray, PFT, X-ray orders, PFT's Insurance Providers Health Insurance Type Health Plan Insurance Address Health Plan Insurance Phone Health Plan Insurance Name Health Plan Coverage Dates Member ID Patient Relationship to Subscriber Patient Address Patient Phone Patient Name Patient Date of Subscriber ID Subscriber Name Subscriber Date of Group No MEDICARE PART A [address] [facility] [id number] [phone] MEDICARE PART A self Algi [place] s [id number] [place] [address] ATTN CLAIMS [facility] [id number] [phone] [place] self Algi [place] [id number] [place] MEDICARE [address] [place] [id number] [place] MEDICARE self Algi [place] [id number] [place] [address] [facility] [id number] [place] self [place]gi [place] [id number] BCBS OUT OF AREA [address] ATTN CLAIMS [facility] [id number] BCBS OUT OF AREA self Algi [place] [id number] [id number] MEDICARE [address] [facility] [address] MEDICARE self Algi [place] [id number]
--- OUTSIDE RECORDS SUMMARY | 2022-05-21 18:36 | XMS_ITS | Continuity of Care Document ---
Author Name Unknown Organization [facility] Ambulatory Clinics Address [address] [place] [address] Care Team Providers Care International Recruiter Name Role Phone RAMIRO HENDERSON Primary Care Physician [phone] Encounter [facility] NBR [id number] Date(s): 01/12/22 - 01/12/22 [facility] Ambulatory Clinics [address] [place], [place] [address] Encounter Diagnosis Squamous cell carcinoma(Discharge Diagnosis) - 01/12/22 Actinic keratosis(Discharge Diagnosis) - 01/12/22 Discharge Disposition: Home or Self Care Attending Physician: Rogelio Louise DO Allergies, Adverse Reactions, Alerts Substance Reaction Severity Status ibuprofen Unknown Unknown Active naproxen Unknown Unknown Active oxybutynin Unknown Unknown Active diclofenac Unknown Unknown Active atorvastatin Unknown Unknown Active Capoten Unknown Unknown Active Assessment and Plan Future Appointments Medications allopurinol 300 mg oral tablet 1 Unknown, 0 Refill(s) Start Date: 12/24/21 Status: Ordered aspirin 81 mg oral capsule 1 Unknown, 0 Refill(s) Start Date: 12/24/21 Status: Ordered doxazosin 4 mg oral tablet 1 Unknown, 0 Refill(s) Start Date: 12/24/21 Status: Ordered ferrous sulfate 325 mg (65 mg elemental iron) oral delayed release tablet 1 Unknown, 0 Refill(s) Start Date: 12/24/21 Status: Ordered finasteride 5 mg oral tablet 1 Unknown, 0 Refill(s) Start Date: 12/24/21 Status: Ordered Flonase Allergy Relief 50 mcg/inh nasal spray 1 Unknown, 0 Refill(s) Start Date: 12/24/21 Status: Ordered fluorouracil 5% topical cream BID, 1 Unknown, 0 Refill(s) Start Date: 12/24/21 Status: Ordered gabapentin 100 mg oral capsule 1 Unknown, 0 Refill(s) Start Date: 12/24/21 Status: Ordered Levemir FlexTouch 100 units/mL subcutaneous solution 0 Refill(s) Start Date: 12/24/21 Status: Ordered losartan 100 mg oral tablet 1 Unknown, 0 Refill(s) Start Date: 12/24/21 Status: Ordered losartan 25 mg oral tablet 1 Unknown, 0 Refill(s) Start Date: 12/24/21 Status: Ordered lysine 1000 mg oral tablet 0 Refill(s) Start Date: 12/24/21 Status: Ordered metFORMIN 500 mg oral tablet 1 Unknown, 0 Refill(s) Start Date: 12/24/21 Status: Ordered metFORMIN 850 mg oral tablet 1 Unknown, 0 Refill(s) Start Date: 12/24/21 Status: Ordered mometasone-formoterol 50 mcg-5 mcg/ inh inhalation aerosol 0 Refill(s) Start Date: 12/24/21 Status: Ordered montelukast 10 mg oral tablet 1 Unknown, 0 Refill(s) Start Date: 12/24/21 Status: Ordered multivitamin adult, oral tablet 1 Unknown, 0 Refill(s) Start Date: 12/24/21 Status: Ordered Myrbetriq 50 mg oral tablet, extended release 1 Unknown, 0 Refill(s) Start Date: 12/24/21 Status: Ordered Nasonex 50 mcg/inh nasal spray 2 Unknown, 0 Refill(s) Start Date: 12/24/21 Status: Ordered oxyCODONE-acetaminophen 5 mg-325 mg oral tablet QID, 1 Unknown, 0 Refill(s) Start Date: 12/24/21 Status: Ordered simvastatin 80 mg oral tablet 1 Unknown, 0 Refill(s) Start Date: 12/24/21 Status: Ordered timolol hemihydrate 0.5% ophthalmic solution 1 Unknown, 0 Refill(s) Start Date: 12/24/21 Status: Ordered Tylenol 8 HR Arthritis Pain 0 Refill(s) Start Date: 12/24/21 Status: Ordered Tylenol Extra Strength 500 mg oral tablet 0 Refill(s) Start Date: 12/24/21 Status: Ordered ZyrTEC 10 mg oral tablet 0 Refill(s) Start Date: [...] Tobacco Use:. 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 Right sikh showing actinic keratosis. Patient was using Efudex on all the spots. Patient states that he has lesions on both sides behind the ears. Patient notes that these areas are the same. Patient notes that he has not noticed any new skin lesions.He does note that he has seen a lesion on the right side by the eye. Patient has not used the Efudex recently, but he has used this in the past. Review of Systems Negative for: no new cardiac, respiratory, GI, , hematologic, neurologic, psychological, allergic, traumatic or endocrine problems except as listed above Physical Exam GENERAL APPEARANCE:??The patient is awake, alert, and oriented and in no acute distress, Appears nutritionally sound, Healthy in appearance, Voice is strong, with no stridor or stertor, Handling secretions without difficulty.?PSYCH:??affect normal, good eye contact, oriented to person, oriented to place, oriented to time.?NEURO:??CN's II-XII grossly intact, Gait is normal, The patient has endpoint nystagmus only.?HEENT:??The patient is normocephalic with a normal facies with cranial nerves 2 through 12 bilaterally equal and intact. Pupils are equal and reactive to light with extraocular movements bilaterally equal and intact. There is no proptosis or enophthalmos ?NECK:??There is no palpable lymphadenopathy.?SKIN:??AK left posterior neck and right sikh to be treated with Efudex.?MUSCULOSKELETAL:??cane Assessment/Plan 1.??Squamous cell carcinoma??C44.92 No evidence of recurrence, continued observation-consider shave??excision of the left posterior neck if it does not respond??to the Efudex 2.??Actinic keratosis??L57.0 Recommend that he proceed with treatment of Efudex to areas of the left posterior neck and right sikh. Areas were marked and photographed today, patient was provided with treatment instructions, hecurrently has the prescription. He would otherwise call the office should he wish to be seen for skin recheck. Follow Up Instructions prn, skin recheck Problem List/Past Medical History Ongoing Actinic keratosis Bilateral sacroiliitis Bronchiectasis Chronic obstructive [...] qualifying data Medications allopurinol 300 mg oral tablet aspirin 81 mg oral capsule doxazosin 4 mg oral tablet ferrous sulfate 325 mg (65 mg elemental iron) oral delayed release tablet finasteride 5 mg oral tablet Flonase Allergy Relief 50 mcg/inh nasal spray fluorouracil 5% topical cream, BID gabapentin 100 mg oral capsule Levemir FlexTouch 100 units/mL subcutaneous solution losartan 100 mg oral tablet losartan 25 mg oral tablet lysine 1000 mg oral tablet metFORMIN 500 mg oral tablet metFORMIN 850 mg oral tablet mometasone-formoterol 50 mcg-5 mcg/ inh inhalation aerosol montelukast 10 mg oral tablet multivitamin adult, oral tablet Myrbetriq 50 mg oral tablet, extended release Nasonex 50 mcg/inh nasal spray oxyCODONE-acetaminophen 5 mg-325 mg oral tablet, QID simvastatin 80 mg oral tablet timolol hemihydrate 0.5% ophthalmic solution Tylenol 8 HR Arthritis Pain Tylenol Extra Strength 500 mg oral tablet ZyrTEC 10 mg oral tablet Allergies Capoten??(Unknown) atorvastatin??(Unknown) diclofenac??(Unknown) ibuprofen??(Unknown) naproxen??(Unknown) oxybutynin??(Unknown) Social History Electronic Cigarette/Vaping Electronic Cigarette Use: Unknown/not obtained. Tobacco Tobacco use status unknown Tobacco Use:. Electronically Signed on 01/12/22 11:13 AM Rogelio Louise DO Patient Care team information Care Team Personnel Name: RAMIRO HENDERSON Position: No Access Member Role: Primary Care Physician Address: Address: [address] [place] [address] Care Team Related Persons Name: ULANA CONTRERAS
--- OUTSIDE RECORDS SUMMARY | 2022-05-21 18:36 | XMS_ITS | Continuity of Care Document ---
Author Name Unknown Organization [facility] Ambulatory Clinics Address [address] [place] [address] Care Team Providers Care Learning And Development Analyst Name Role Phone RAMIRO HENDERSON Primary Care Physician Encounter [facility] NBR [id number] Date(s): 01/14/22 - 01/14/22 [facility] Ambulatory Clinics [address] [place], [place] [address] Encounter Diagnosis Sacroiliac joint dysfunction(Discharge Diagnosis) - 01/14/22 Sacrococcygeal disorders, not elsewhere classified(Final) - Discharge Disposition: Home or Self Care Attending Physician: Bandar Arnold DO Allergies, Adverse Reactions, Alerts Substance Reaction Severity Status ibuprofen Unknown Unknown Active naproxen Unknown Unknown Active oxybutynin Unknown Unknown Active diclofenac Unknown Unknown Active atorvastatin Unknown Unknown Active Capoten Unknown Unknown Active Assessment and Plan Future Appointments Functional Status 01/14/22 Other exposure to Infectious Disease Non e Medications allopurinol 300 mg oral tablet See [...] use status u nknown Tobacco Use:. Sex Patient Care team information Care Team Personnel Name: RAMIRO HENDERSON Position: No Access Member Role: Primary Care Physician Address: Address: [address] [place] [address] Care Team Related Persons Name: LUANA CONTRERAS
--- OUTSIDE RECORDS SUMMARY | 2022-05-21 18:36 | XMS_ITS | Continuity of Care Document ---
Author Name Unknown Organization [facility] Address [address] [place] [address] Care Team Providers Care Sheet Manager Name Role Phone Primeau Rosas MATIAS Primary Care Physician Encounter [facility] [id number] Date(s): 03/29/22 - 03/29/22 [facility] [address] [place] [address] Discharge Disposition: Home or Self Care Attending Physician: Osbaldo Brady MD Admitting Physician: Osbaldo Brady MD Referring Physician: Osbaldo Brady MD Allergies, Adverse Reactions, Alerts No Known [...] Name: Ben Rosas MATIAS MD Address: Address: [address] [address]- [place]
[2022-05-21 21:10] LABS: COMMENT (LAB VIEW ONLY) 91.09 mg/dL
== END 2022-05-21 18:21 | disposition home or self-care (01) ==
LOC: NCHCN 18:20
PROVIDERS: PCP Internal Medicine; Visit Provider Internal Medicine
DX: E11.9 Type 2 diabetes mellitus without complications (principal)
CPT/HCPCS: 82043; 82570

== ENCOUNTER 2022-05-26 13:18 | Outpatient (REF) | payer MEDICARE, BC, SELFPAY ==
[2022-05-27 11:47] LABS: COMMENT (LAB VIEW ONLY) 70.62 mg/dL; PROTEIN 110.1 mg/dL; Prot/Crea Ur Ratio 1.55
== END 2022-05-26 13:19 | disposition home or self-care (01) ==
LOC: NCHCN 13:18
PROVIDERS: PCP Internal Medicine; Visit Provider Internal Medicine
DX: N40.0 Benign prostatic hyperplasia without lower urinary tract symptoms (principal)
CPT/HCPCS: 82565; 84156

== ENCOUNTER 2022-06-08 10:45 | Outpatient (REF) | payer MEDICARE, BC, SELFPAY ==
[2022-06-08 19:01] LABS: COMMENT (LAB VIEW ONLY) 66.18 mg/dL; PROTEIN 275.9 mg/dL; Prot/Crea Ur Ratio 4.16
[2022-06-09 20:01] LABS: Clarity Cloudy (Clear)
[2022-06-09 20:02] LABS: Bilirubin Small (Negative); Blood Large (Negative); Glucose Negative (Negative); Ketones Trace mg/dL (Negative); Leukocyte Esterase Negative (Negative); Nitrite Negative (Negative); Specific Gravity 1.025 (1.005-1.025); Urobilinogen 0.2 mg/dL (Up to 0.2); pH 5.5 (5-8)
[2022-06-09 20:03] LABS: Bacteria Negative HPF (Negative); Casts Negative LPF (Negative); Crystals Negative HPF (Negative); Epithelial Cells Few HPF (Negative); Mucus Moderate (Negative); RBC >50 HPF (0-2); WBC 0-2 HPF (0-5)
[2022-06-09 20:04] LABS: C & S Indicated? No
== END 2022-06-08 10:46 | disposition home or self-care (01) ==
LOC: NCHCN 10:45
PROVIDERS: PCP Internal Medicine; Visit Provider Internal Medicine
DX: R80.9 Proteinuria, unspecified (principal); R82.998 Other abnormal findings in urine
CPT/HCPCS: 81003; 81015; 82565; 84156

== ENCOUNTER 2022-09-17 15:27 | Outpatient (REF) | payer MEDICARE, BC, SELFPAY ==
[2022-09-17 20:30] LABS: Epithelial Cells Negative HPF (Negative); RBC 0-2 HPF (0-2); WBC Negative HPF (0-5)
[2022-09-17 20:31] LABS: Bacteria Rare HPF (Negative); C & S Indicated? No; Casts Negative LPF (Negative); Crystals Negative HPF (Negative); Mucus Negative (Negative)
== END 2022-09-17 15:28 | disposition home or self-care (01) ==
LOC: NCHCN 15:27
PROVIDERS: PCP Internal Medicine; Visit Provider Internal Medicine
DX: R31.0 Gross hematuria (principal)
CPT/HCPCS: 81015

== ENCOUNTER 2022-12-16 15:09 | Outpatient (REF) | payer MEDICARE, BC, SELFPAY ==
[2022-12-16 19:06] LABS: Abs Immature Grans 0.01 10^3/uL (0.0-0.06); Absolute Basophil Count 0.04 10^3/uL (0.0-0.2); Absolute Eosinophil Count 0.28 10^3/uL (0.0-0.7); Absolute Lymphocyte Count 1.43 10^3/uL (1.2-3.4); Absolute Monocyte Count 0.43 10^3/uL (0.1-0.8); Absolute Neutrophil Count 1.61 10^3/uL (1.2-6.7); Basophils % 1.1; Eosinophils % 7.4; HGB 11.9 g/dL (13.5-17.5); Immature Grans % 0.3; Lymphocytes % 37.6; MCH 28.9 pg (27.0-33.0); MCHC 31.3 % (32.0-36.0); MCV 92 fL (80-95); MPV 10.6 fL (8.0-11.0); Monocytes % 11.3; Neutrophils % 42.3; Platelet Count 185 10^3/uL (130-400); RBC 4.12 10^6/uL (4.36-5.78); RDW 16.1 % (11.8-14.1); RDW-SD 54.5 fL
[2022-12-16 19:28] LABS: ALT 29 U/L (16-63); Anion Gap 7.2 mmol/L (3-11); BUN 28 mg/dL (7-18); CO2 27.8 mmol/L (21.0-32.0); CREATININE 1.3 mg/dL (0.70-1.30); Calcium 9.7 mg/dL (8.5-10.1); Calculated LDL 66 mg/dL (<100); Chloride 105 mmol/L (98-107); Cholesterol 137 mg/dL (<200); Creatine Kinase 112 U/L (39-308); Estimated GFR 54.51 (mL/min/1.73m2); Glucose 138 mg/dL (74-106); HDL Cholesterol 41 mg/dL (40-60); Potassium 4.5 mmol/L (3.5-5.1); Sodium 140 mmol/L (136-145); Triglyceride 153 mg/dL (<150)
[2022-12-16 20:51] LABS: Uric Acid 4.9 mg/dL (3.5-7.2)
== END 2022-12-16 15:10 | disposition home or self-care (01) ==
LOC: NCHCN 15:09
PROVIDERS: PCP Internal Medicine; Visit Provider Internal Medicine
DX: I10 Essential (primary) hypertension (principal); E11.9 Type 2 diabetes mellitus without complications; E78.5 Hyperlipidemia, unspecified; M10.9 Gout, unspecified
CPT/HCPCS: 80048; 80061; 82550; 84460; 84550; 85025

== ENCOUNTER → 2022-12-23 13:18 | Outpatient (BNVA) | payer MEDICARE, BC, SELFPAY | PROVIDERS: PCP Internal Medicine; Referring Provider Internal Medicine; Visit Provider Nurse Practitioner Gerontology | DX: R33.8 Other retention of urine (principal); N32.81 Overactive bladder; N40.1 Benign prostatic hyperplasia with lower urinary tract symptoms; R35.0 Frequency of micturition; R39.15 Urgency of urination | CPT/HCPCS: 51798; 99213 ==

== ENCOUNTER 2023-07-25 19:40 | Outpatient (REF) | payer MEDICARE, BC, SELFPAY | END 2023-07-25 19:41 | disposition home or self-care (01) | LOC: NCHCN 19:40 | PROVIDERS: PCP Internal Medicine; Visit Provider Internal Medicine | DX: N30.00 Acute cystitis without hematuria (principal); B96.89 Other specified bacterial agents as the cause of diseases classified elsewhere | CPT/HCPCS: 87086 ==

== ENCOUNTER 2023-08-26 14:26 | Outpatient (REF) | payer MEDICARE, BC, SELFPAY ==
[2023-08-26 18:58] LABS: HCT 36.4 % (40.0-50.0); HGB 11.4 g/dL (13.5-17.5); MCH 30.2 pg (27.0-33.0); MCHC 31.3 % (32.0-36.0); MCV 97 fL (80-95); MPV 10.4 fL (8.0-11.0); Platelet Count 206 10^3/uL (130-400); RBC 3.77 10^6/uL (4.36-5.78); RDW 14.6 % (11.8-14.1); RDW-SD 51.5 fL; WBC 4.66 10^3/uL (4.4-10.8)
[2023-08-26 19:10] LABS: ALT 30 U/L (16-63); AST 28 U/L (15-37); Albumin 3.2 g/dL (3.4-5.0); Alkaline Phosphatase 77 U/L (46-116); Anion Gap 7.3 mmol/L (3-11); BUN 20 mg/dL (7-18); Bilirubin, Total 0.26 mg/dL (0.2-1.0); CO2 28.7 mmol/L (21.0-32.0); CREATININE 1.3 mg/dL (0.70-1.30); Calcium 9.3 mg/dL (8.5-10.1); Chloride 105 mmol/L (98-107); Estimated GFR 54.17 (mL/min/1.73m2); Glucose 192 mg/dL (74-106); Potassium 4.5 mmol/L (3.5-5.1); Sodium 141 mmol/L (136-145); Total Protein 7.1 g/dL (6.4-8.2)
== END 2023-08-26 14:27 | disposition home or self-care (01) ==
LOC: NCHCN 14:26
PROVIDERS: PCP Internal Medicine; Visit Provider Internal Medicine
DX: I10 Essential (primary) hypertension (principal)
CPT/HCPCS: 80053; 85027

== ENCOUNTER → 2024-05-31 12:51 | Outpatient (BNVA) | payer MEDICARE, BC, SELFPAY | PROVIDERS: PCP Internal Medicine; Referring Provider Internal Medicine; Visit Provider Nurse Practitioner Gerontology | DX: Z87.898 Personal history of other specified conditions (principal); R33.9 Retention of urine, unspecified; N32.81 Overactive bladder | CPT/HCPCS: 51798; 99213 ==

== ENCOUNTER 2024-07-20 19:44 | Outpatient (REF) | payer MEDICARE, BC, SELFPAY ==
[2024-07-20 19:17] LABS: HCT 31.9 % (40.0-50.0); HGB 9.8 g/dL (13.5-17.5); MCH 28.2 pg (27.0-33.0); MCHC 30.7 % (32.0-36.0); MCV 92 fL (80-95); MPV 11.2 fL (8.0-11.0); Platelet Count 176 10^3/uL (130-400); RBC 3.48 10^6/uL (4.36-5.78); RDW-SD 55.1 fL; WBC 4.34 10^3/uL (4.4-10.8)
[2024-07-20 19:36] LABS: ALT 30 U/L (16-63); AST 35 U/L (15-37); Alkaline Phosphatase 61 U/L (46-116); Anion Gap 7.1 mmol/L (3-11); BUN 28 mg/dL (7-18); Bilirubin, Total 0.2 mg/dL (0.2-1.0); CO2 28.9 mmol/L (21.0-32.0); CREATININE 1.6 mg/dL (0.70-1.30); Calcium 9.5 mg/dL (8.5-10.1); Chloride 107 mmol/L (98-107); Estimated GFR 41.96 (mL/min/1.73m2); Glucose 169 mg/dL (74-106); Potassium 4.4 mmol/L (3.5-5.1); Sodium 143 mmol/L (136-145); Total Protein 6.7 g/dL (6.4-8.2); Uric Acid 5.2 mg/dL (3.5-7.2)
== END 2024-07-20 19:45 | disposition home or self-care (01) ==
LOC: NCHCN 19:44
PROVIDERS: PCP Internal Medicine; Visit Provider Internal Medicine
DX: N18.9 Chronic kidney disease, unspecified (principal)
CPT/HCPCS: 80053; 85027; 84550

== ENCOUNTER 2024-08-02 13:01 | Outpatient (REF) | payer MEDICARE, BC, SELFPAY ==
[2024-08-02 20:12] LABS: Ferritin 23 ng/mL (26-388); Vitamin B12 664 pg/mL (193-986)
[2024-08-02 20:19] LABS: Folate > 20.0 ng/mL (8.6-20.0)
[2024-08-02 20:25] LABS: PROTEIN 467.3 mg/dL; Prot/Crea Ur Ratio 2.65
[2024-08-02 20:36] LABS: Iron 19 ug/dL (65-175); Total Iron Binding Capacity 251 ug/dL (250-450); Transferrin Sat 8 % (20-55)
[2024-08-06 12:33] LABS: Albumin 47.3 % (55.8-66.1); Total Protein 6.3 g/dL (6.3-8.2)
[2024-08-06 14:51] LABS: Albumin, Urine % 74.5 %; Albumin, Urine mg/dL 472 mg/dL; Globulins, Urine % 25.5 %; Globulins, Urine mg/dL 161 mg/dL; Immunotyping, Urine (See Note); Total Protein Urine 633 mg/dL (See Note)
== END 2024-08-02 13:02 | disposition home or self-care (01) ==
LOC: NCHCN 13:01
PROVIDERS: PCP Internal Medicine; Visit Provider Internal Medicine
DX: D64.9 Anemia, unspecified (principal); N32.81 Overactive bladder; R80.8 Other proteinuria
CPT/HCPCS: 84156; 84166; 86335; 82565; 82607; 82728; 82746; 83540; 83550; 84165

== ENCOUNTER 2024-10-26 19:26 | Outpatient (REF) | payer MEDICARE, BC, SELFPAY ==
[2024-10-26 19:58] LABS: HCT 29.6 % (40.0-50.0); HGB 8.8 g/dL (13.5-17.5); MCH 26.7 pg (27.0-33.0); MCHC 29.7 % (32.0-36.0); MCV 90 fL (80-95); MPV 10.7 fL (8.0-11.0); Platelet Count 231 10^3/uL (130-400); RBC 3.30 10^6/uL (4.36-5.78); RDW 15.3 % (11.8-14.1); RDW-SD 50.0 fL; WBC 4.01 10^3/uL (4.4-10.8)
[2024-10-26 20:09] LABS: Hemoglobin A1C 6.2 % (<5.7)
[2024-10-26 20:24] LABS: Ferritin 18 ng/mL (26-388)
== END 2024-10-26 19:27 | disposition home or self-care (01) ==
LOC: NCHCN 19:26
PROVIDERS: PCP Internal Medicine; Visit Provider Internal Medicine
DX: E11.9 Type 2 diabetes mellitus without complications (principal); D64.9 Anemia, unspecified
CPT/HCPCS: 85027; 82728; 83036

== ENCOUNTER 2025-02-04 13:43 | Outpatient (REF) | payer MEDICARE, BC, SELFPAY | END 2025-02-04 13:44 | disposition home or self-care (01) | LOC: NCHCN 13:43 | PROVIDERS: PCP Internal Medicine; Visit Provider Internal Medicine | DX: L03.012 Cellulitis of left finger (principal) | CPT/HCPCS: 87077; 87070; 87186; 87205 ==